=== PATIENT | female | born 1955 | race Caucasian/White ===

== ENCOUNTER 2017-08-02 13:09 | Day surgery (SDC) | payer OTHER ==
[~2017-08-02] VITALS: Ht 167.6 cm; Wt 65.0 kg
--- NOTE | ~2017-08-02 | CON ---
PATIENT'S NAME: SEDRICK GOETZ [facility] AGE: 61 Y [address] ROOM: [place] [address] [place]ATION: [facility] [place]MIT DATE: 08/02/2017 Consultation DISCHARGE DATE: FAMILY PHYSICIAN: Farzana Mcelroy MD ATTENDING PHYSICIAN: Farzana Mcelroy DATE OF CONSULTATION: 08/02/2017 CHIEF COMPLAINT: Abdominal pain. HISTORY OF PRESENT ILLNESS: The patient is a 61-year-old female, who said she woke up this morning feeling full. She described worsening abdominal pain. She was seen by Dr. Mcelroy where she was found to have significant abdominal pain. A CT scan was performed and revealed incarcerated hernia. The patient described pain across her abdomen. She has had no nausea or vomiting today. She said over the last 6 months to a year, she has had problems with what she describes as constipation where her abdomen will feel quite full. She has a history of having a right inguinal hernia repair in the past at the age of 11. She has been having no fevers or chills. CURRENT MEDICATIONS: 1. Lisinopril. 2. Lopressor. 3. Flonase. 4. Simvastatin. CURRENT ILLNESSES: Hypertension. PAST SURGICAL HISTORY: 1. Laparoscopic cholecystectomy. 2. Right inguinal hernia. SOCIAL HISTORY: She does smoke, smoked a pack a day for 35 years. REVIEW OF SYSTEMS: She denies diabetes. No hyperthyroidism or hypothyroidism. Still has hypertension. Denies chest pain. No shortness of breath. Has had asthma and seasonal allergies. No history of any cancers. Does have intermittent constipation. No melena or hematochezia. No hematuria or dysuria. PHYSICAL EXAMINATION: PATIENT'S NAME: SEDRICK GOETZ [facility] AGE: 61 Y [address] ROOM: [place] [id number] LOCATION: [facility] [place] ADMIT DATE: 08/02/2017 Consultation DISCHARGE DATE: FAMILY PHYSICIAN: Farzana Mcelroy MD ATTENDING PHYSICIAN: Farzana Mcelroy GENERAL: A pleasant 61-year-old female, who is uncomfortable. HEENT: Head is normocephalic, atraumatic. Eyes are anicteric. NECK: Without lymphadenopathy. HEART: Regular rate and rhythm. LUNGS: Clear to auscultation bilaterally. ABDOMEN: Soft. Bowel sounds are hypoactive. There is mild tenderness to palpation throughout the abdomen. In the right groin, there is a palpable lump. This is not reducible. There is tenderness. No surrounding erythema. There is no left inguinal hernia. EXTREMITIES: Warm. No edema. ASSESSMENT: Recurrent incarcerated right inguinal hernia. PLAN: At this point in time, discussed the findings with Sedrick and her . Discussed the need for repair of this risks of surgery, which include bleeding, infection, bowel injury, need for bowel resection. We discussed mesh placement, mesh infections, wound complications, neuro and vascular injury as well as chronic pain. She understands the risks of surgery and would like to proceed. We will schedule this in the near future. MD KOKO PHELPS/modl /[id number] d: 08/02/171954 t: 08/04/17 1029, CONSULTATION REPORT
--- NOTE | ~2017-08-02 | OR ---
PATIENT'S NAME: SEDRICK GOETZ [facility] AGE: 61 Y [address] ROOM: [address] [address] LOCATION: [facility] [place] ADMIT DATE: 08/02/2017 OR/Procedure Report DISCHARGE DATE: FAMILY PHYSICIAN: Farzana Mcelroy MD ATTENDING PHYSICIAN: Farzana Mcelroy SURGEON: Rick Beasley MD GUIDE DELEGATE: Odilia Euceda PA-C. DATE OF PROCEDURE: 08/02/2017 PREOPERATIVE DIAGNOSIS: Incarcerated right groin hernia. POSTOPERATIVE DIAGNOSIS: Incarcerated right femoral hernia. PROCEDURE: Repair of incarcerated right femoral hernia with mesh. FINDINGS: The patient had a loop of bowel. The bowel appeared slightly ischemic initially, no necrosis was present, and the bowel after relieving tension appeared to re-perfuse without much problem and a resection was not necessary. ESTIMATED BLOOD LOSS: 20 mL. COMPLICATIONS: None. INDICATIONS: The patient is a 61-year-old female who presented with abdominal pain. She had a CT evidence of incarcerated hernia. We discussed repair of the groin hernia with the patient and the risks, benefits, and alternatives, and she elected to proceed. DESCRIPTION OF PROCEDURE: The patient was taken to the operating room. She was supine, given IV sedation, and subsequently intubated. Her abdomen was prepped with ChloraPrep and sterilely draped. Local anesthetic was infiltrated overlying her right groin. She had had a previous groin hernia repaired. An incision was created over her old incision, this was carried down to the hernia sac, which was dissected around circumferentially. This appeared to be a femoral hernia. There was bowel within the hernia sac. We mobilized the hernia sac. Ultimately, we were able to relieve tension off the bowel. This initially appeared ischemic, however, this reperfused easily once tension was off the bowel and the bowel was free. Once this appeared reperfused, we allowed this to fall back into the abdominal cavity to further define the hernia edges. This was relatively a large femoral defect. A large ProLoop plug was placed into the defect, this was secured to Joseph's ligament as well as to the inguinal ligament and surrounding soft tissues. Once this was secured, the operative field was inspected and it appeared hemostatic. August's fascia was closed with 3-0 Vicryl suture and skin closed with 4-0 PATIENT'S NAME: SEDRICK GOETZ [facility] AGE: 61 Y [address] ROOM: [place] [id number] LOCATION: [facility] [place] ADMIT DATE: 08/02/2017 OR/Procedure Report DISCHARGE DATE: FAMILY PHYSICIAN: Farzana Mcelroy MD ATTENDING PHYSICIAN: Farzana Mcelroy Monocryl suture. Steri-Strips and sterile dressings were placed. The patient was extubated and sent to recovery in good condition indication. RICK J MD KOKO BEASLEY/miranda /[id number] d: 08/02/179 t: 08/04/17 1032, OPERATIVE SUMMARY
[2017-08-02] MEDS ORDERED: NORVASC5 MG PO (14:43)
[2017-08-02] MEDS ORDERED: DIOVAN HCT 3201 EAC1 PO (14:44)
[2017-08-02] MEDS ORDERED: FLONASE 50 MCG/16 GM NOSE (14:46)
[2017-08-02] MEDS ORDERED: LASIX20 MG PO (14:46)
[2017-08-02] MEDS ORDERED: ZOCOR20 MG PO (14:47)
[2017-08-02] MEDS ORDERED: TOPROL XL25 MG PO (14:49)
--- NOTE | 2017-08-02 19:21 | NUR ---
Patient admitted at [address] [facility] with an incarcerated hernia repair. Pt was taken to OR shortly after arriving for repair. Pt lives in own home with her spouse here in [place]. Hx high cholesterol, htn, gerd, tobacco use, daily alcohol use (3/day). Pt wishes to keep her belongings with her - purse, jewelry, glasses, dentures, clothing. Reviewed plans for purposeful rounding, bedside reporting, fall prevention/vte prevention measures in place, and importance of hand hygiene. Pt verbalized understanding of above teaching. Report will be given to pt's oncoming shift engineer nurse. Trent MCLEOD
--- NOTE | 2017-08-02 19:28 | NUR ---
PATIENT ALERT AND ORIENTED X3. VSS. UP WITH SBA. ON ROOM AIR. WENT TO OR AT 1420 RETURN TO ROOM AT 1635 FROM PACU. TOLERATING CL WELL, AMBULATES IN LAI. NO PRNS GIVEN SINCE RETURN TO FLOOR IV SL. DENIES NEEDS AT THIS TIME,
--- NOTE | 2017-08-03 03:44 | NUR ---
Significant Event: PT AO. VSS ON RA, AFEBRILE. IV SALINE LOCK R HAND. PT UP AD BECK IN ROOM. REFUSED PNEUMATICS. TOLERATED CLEAR LIQUID DIET, ADVANCED TO REGULAR FOR THE AM. INCISION TO R LOWER ABDOMEN, KATIE C/D/I. PRN LETICIA X1 AT 2045. Follow up: POSSIBLE DISMISSAL
[2017-08-03] MEDS ORDERED: NORCO 5-325 TA1 EACH PO (09:50)
--- NOTE | 2017-08-03 09:51 | NUR ---
d-pt does not have or want an advair and states she will not take one.
--- NOTE | 2017-08-03 10:05 | NUR ---
D:Orders received for patient to be dismissed. I:Dismissal instructions were prepared and reviewed with the patient by the virtual nurse. The following information was reviewed: diet and activity recommendations for home, dressing/incisional care for home, s/s of infection and other abnormalities to report to MD if they occur, home medications/new prescription medications, and plans for follow up appointment with Dr. De La Cruz in 2 weeks. Amara teaching given to and reviewed with the patient on the following topics: 1- Discharge Instructions for Open Hernia Repair 2- Preventing Deep Vein Thrombosis After Surgery and 3- [place]. R:The patient verbalized understanding of above instructions and denied further questions at that point in time. P:The patient signed the dismissal paperwork and was given her prescriptions. The patient's primary nurse, Idania, was informed that the dismissal paperwork had been reviewed with and given to the patient. The patient will be dismissed later this morning when her ride arrives. Trent MCLEOD
[2017-08-03] MEDS ORDERED: CALCIUM 500 +1 EACH PO (10:13)
[2017-08-03] MEDS ORDERED: ASCORBIC ACID500 MG PO (10:13)
[2017-08-03] MEDS ORDERED: ONE DAILY FOR1 EAC2 PO (10:13)
[2017-08-03] MEDS ORDERED: STOOL SOFTENER100 M1 PO (10:14)
[2017-08-03] MEDS ORDERED: AYR50 ML NOSE (10:15)
[2017-08-03] MEDS ORDERED: PREVACID15 MG PO (10:15)
--- NOTE | 2017-08-03 12:15 | NUR ---
Introduced self and role of care management to patient. Patient lives in [place] with her spouse. She is going home today. Says her and neighbors will help her at home. She is self pay and has has a financial assistand form. Home today.
--- NOTE | 2017-08-03 13:22 | NUR ---
Significant Event: Pt up ad adam. [place] given at 0840 with partial relief of lower abd pain. Dressing to right groin/lower abd had small amt of shadow bloody drainage, dressing changed prior to discharge. Dc to home at 1300 with . States understanding of all dc instructions and care of incision. Follow up:
== END 2017-08-03 13:04 | disposition disaster alternative care site (69) ==
LOC: GMSU 13:09 → GSDC 13:09 → GRAD 13:09 → GMSU 13:09 → GSDC 08-03 13:04
PROC: 0YU70JZ Supplement Right Femoral Region with Synthetic Substitute, Open Approach (ICD-10-PCS; principal; 2017-08-02)
DX: K41.30 Unilateral femoral hernia, with obstruction, without gangrene, not specified as recurrent (principal); I10 Essential (primary) hypertension; E78.2 Mixed hyperlipidemia; Z88.1 Allergy status to other antibiotic agents; Z79.899 Other long term (current) drug therapy; Z90.49 Acquired absence of other specified parts of digestive tract; Z90.710 Acquired absence of both cervix and uterus; Z98.890 Other specified postprocedural states
CPT/HCPCS: C1781; J0694; J7030; J7040; Q9967